=== PATIENT | female | born 2000 | race Caucasian/White ===

== ENCOUNTER 2021-08-24 01:56 | Emergency (ER) | payer MEDICAID ==
[~2021-08-24] VITALS: Ht 162.6 cm; Wt 61.4 kg
[2021-08-24 02:01] VITALS: BP 114/89
[2021-08-24 02:42] LABS: URINE HCG NEGATIVE (NEG)
[2021-08-24 02:45] LABS: CLARITY,URINE SLIGHTLY CLOUDY (Clear); COLOR,URINE YELLOW (Yellow); GLUCOSE, URINE NEGATIVE (Neg); KETONES,URINE NEGATIVE (Neg); LEUKOCYTE ESTERASE ,URINE MODERATE (Neg); NITRITES, URINE NEGATIVE (Neg); OCCULT BLOOD,URINE MODERATE (Neg); PH,URINE 6.5 (4.8-8.0); PROTEIN,URINE 100 mg/dl (Neg); UROBILINOGEN,URINE 0.2 E.U/dL (0.2-1.0)
[2021-08-24 02:52] LABS: UA COLLECTION TYPE CLN CATCH MIDSTREAM
[2021-08-24 03:08] LABS: BACTERIA,URINE 1+ /HPF (Neg); MUCUS STRANDS FEW /LPF (Neg); SQUAMOUS EPITHELIAL CELL,UR FEW /LPF (FEW); TRANSITIONAL EPI CELLS,URINE FEW /HPF; WBC,URINE 50-100 /HPF (0-4)
[2021-08-24 03:09] LABS: WBC CLUMPS,URINE MANY /HPF (NEGATIVE)
[2021-08-24] MEDS ORDERED: CEPH-585 PO (03:19)
[2021-08-24] MEDS ORDERED: cephalexin 250mg capsule PO ONE (03:20)
== END 2021-08-24 03:44 | disposition home or self-care (01) ==
LOC: ER 01:57
DX: N39.0 Urinary tract infection, site not specified (principal)
CPT/HCPCS: 81001; 81025; 87088; 99283

== ENCOUNTER 2022-06-27 12:23 | Emergency (ER) | payer MEDICAID ==
[~2022-06-27] VITALS: Ht 162.6 cm; Wt 55.9 kg
[~2022-06-27 12:23] MED LIST: CEPH-585 PO
[2022-06-27 12:31] VITALS: BP 117/73
[2022-06-27 13:02] LABS: URINE HCG NEGATIVE (NEG)
[2022-06-27 13:04] LABS: CLARITY,URINE CLEAR (Clear); COLOR,URINE YELLOW (Yellow); GLUCOSE, URINE NEGATIVE (Neg); KETONES,URINE NEGATIVE (Neg); LEUKOCYTE ESTERASE ,URINE NEGATIVE (Neg); NITRITES, URINE NEGATIVE (Neg); OCCULT BLOOD,URINE NEGATIVE (Neg); PROTEIN,URINE NEGATIVE (Neg); UROBILINOGEN,URINE 0.2 E.U/dL (0.2-1.0)
[2022-06-27 13:07] LABS: UA COLLECTION TYPE CLN CATCH MIDSTREAM
== END 2022-06-27 22:20 | disposition left against medical advice (07) ==
LOC: ER 12:23
DX: R10.9 Unspecified abdominal pain (principal); Z53.21 Procedure and treatment not carried out due to patient leaving prior to being seen by health care provider
CPT/HCPCS: 81003; 81025